=== PATIENT | female | born 1930 | race Caucasian/White ===

== ENCOUNTER 2017-08-18 15:35 | Emergency (ER) | payer MEDICARE, OTHER ==
--- NOTE | 2017-08-18 16:17 | RAD ---
CHEST ONE VIEW: History: Cough. FINDINGS: Cardiac silhouette and pulmonary vasculature are unremarkable. Mediastinum is midline. No lobar conso lidation or evidence of pneumothorax. IMPRESSION: No active cardiopulmonary abnormalities are demonstrated. POS: [facility]
[2017-08-18 16:21] LABS: #Basophils 0.1 thou/uL (0.0-0.2); #Eosinphils 0.5 thou/uL (0.0-0.7); #Lymphocytes 2.1 thou/uL (1.20-3.40); #Monocytes 0.9 thou/uL (0.11-0.59); #Neutrophils 6.7 thou/uL (1.40-6.50); %Basophils 1.1 % (0.0-1.0); %Eosinophils 4.5 % (0.0-10.0); %Lymphocytes 20.1 % (21.0-51.0); %Monocytes 8.5 % (0.0-10.0); %Neutrophils 65.8 % (42.0-75.0); Hemoglobin 11.5 g/dL (12.0-16.0); Mean Corpuscular HGB CONC 33.6 g/dL (32.0-36.0); Mean Corpuscular Hemoglobin 29.7 pg (27.0-31.0); Mean Corpuscular Volume 88.5 fL (78.0-98.0); Mean Platelet Volume 6.3 fL (7.4-10.4); Platelet Count 288 thou/uL (130-400); RBC Distribution Width 11.1 % (11.5-14.5); Red Blood Cell (RBC) Count 3.86 mill/uL (4.20-5.40); White Blood Cell (WBC) Count 10.2 thou/uL (4.8-10.8)
[2017-08-18] MEDS ORDERED: predniSONE 20 MG TAB ONE (16:30)
[2017-08-18] MEDS ORDERED: Amoxicillin/Potassium Clav 875 MG TAB ONE (16:31)
[2017-08-18 16:36] LABS: Anion Gap 16 mmol/L (10-20); BUN (Urea Nitrogen) 17 mg/dL (9.8-20.1); Calc. Creatinine Clearance 0 mL/min (70-130); Calcium 9.2 mg/dL (7.8-10.44); Carbon Dioxide 26 mmol/L (23-31); Chloride 95 mmol/L (98-107); Estimated GFR-MDRD 51; Glucose 111 mg/dL (83-110); Potassium 3.8 mmol/L (3.5-5.1); Sodium 133 mmol/L (136-145)
[2017-08-18] MEDS ORDERED: Benzonatate 100 MG CAP ONE (16:40)
== END 2017-08-18 16:45 | disposition home or self-care (01) ==
LOC: MADERS 15:35
DX: J20.9 Acute bronchitis, unspecified (principal); Z87.891 Personal history of nicotine dependence; Z79.899 Other long term (current) drug therapy
CPT/HCPCS: 36415; 71045; 80048; 83605; 85025; J7506

== ENCOUNTER 2017-08-24 15:49 | Outpatient (CLI) | payer MEDICARE, OTHER ==
--- NOTE | 2017-08-24 16:19 | RAD ---
LEFT LITTLE TOE THREE VIEWS: History: Toe injury. FINDINGS: Minimally displaced oblique fracture extends through the posterior and lateral margin of the middle p halanx with nondisplaced intraarticular extension. 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 No radiopaque foreign bodies. IMPRESSION: Nondisplaced intraarticular fracture, base of the middle phalanx, left little toe. POS: [facility]
== END 2017-08-24 15:50 | disposition home or self-care (01) ==
LOC: MADRAD 15:49
PROVIDERS: ATTEND Family Medicine
DX: M79.675 Pain in left toe(s) (principal); S92.912A Unspecified fracture of left toe(s), initial encounter for closed fracture

== ENCOUNTER 2017-11-18 09:09 | Emergency (ER) | payer MEDICARE, OTHER ==
--- NOTE | 2017-11-18 10:48 | RAD ---
CHEST ONE VIEW: Comparison: 08-18-17 FINDINGS: Portable upright chest demonstrates a normal cardiac silhouette. The pulmonary vessels and hilum are normal. Costophrenic angles are clear. No consolidation. Possible calcified granuloma in the right lo wer lobe. No pneumothorax or osseous abnormality. IMPRESSION: Nodule in the right lower lobe, possibly representing a calcified granuloma. Dedicated two view chest radiograph is recommended. POS: [facility]
== END 2017-11-18 10:50 | disposition home or self-care (01) ==
LOC: MADERS 09:09
DX: J20.9 Acute bronchitis, unspecified (principal); I10 Essential (primary) hypertension; Z87.891 Personal history of nicotine dependence; Z79.899 Other long term (current) drug therapy
CPT/HCPCS: 71045; J7620